=== PATIENT | male | born 1965 | race Caucasian/White ===

== ENCOUNTER → 2016-12-10 | Day surgery (SDC) | payer OTHER ==
[~2016-12-10] MED LIST: FLUMAZENIL 0.5 MG/5 ML MDV IVP ONE; IOPAMIDOL (ISOVUE-300) 100 ML BTL ONE; MIDAZOLAM 2 MG/2 ML VIAL ONE; NALOXONE HCL 0.4 MG/ML INJ ONE; NS 1,000 ML IV SCH; fentaNYL 100 MCG/2 ML INJ ONE
[2016-12-10 14:43] LABS: INR 1.06 (0.83-1.16); PROTIME(PATIENT) 13.7 SEC (12.0-15.0)
[2016-12-10 14:44] LABS: APTT 25.6 SEC (23.0-38.0)
[2016-12-10 21:02] VITALS: BP 116/72; RESP 18; O2SAT 88
== END | disposition home or self-care (01) ==
LOC: FIMAGING 13:32
PROVIDERS: ATTEND Specialist
PROC: 0T763DZ Dilation of Right Ureter with Intraluminal Device, Percutaneous Approach (ICD-10-PCS; principal; 2016-12-10)
PROC: BT1D1ZZ Fluoroscopy of Right Kidney, Ureter and Bladder using Low Osmolar Contrast (ICD-10-PCS; principal; 2016-12-10)
DX: N20.1 Calculus of ureter (principal); N13.30 Unspecified hydronephrosis; G47.33 Obstructive sleep apnea (adult) (pediatric); F41.9 Anxiety disorder, unspecified; Z88.2 Allergy status to sulfonamides
CPT/HCPCS: 50695; 99152; C1729; C1769; C1894; J0696; J1644; J2250; J2310; J3010; Q9967

== ENCOUNTER 2018-08-16 13:34 | Day surgery (SDC) | payer OTHER ==
[2018-08-16] MEDS ORDERED: LR 1,000 ML IV ONE (13:52)
[2018-08-16] MEDS ORDERED: LIDOCAINE 2% JELLY 20 ML (UROJECT) ONE (15:01)
[2018-08-16] MEDS ORDERED: IOPAMIDOL (ISOVUE-M 300) 15 ML VIAL ONE (15:02)
[2018-08-16] MEDS ORDERED: MIDAZOLAM 2 MG/2 ML VIAL IVP ONE (15:47)
[2018-08-16] MEDS ORDERED: HYDROCODONE/APAP 5/325 TAB PO PRN (15:48)
[2018-08-16] MEDS ORDERED: ONDANSETRON 4 MG/2 ML VIAL IVP PRN (15:48)
[2018-08-16] MEDS ORDERED: NALOXONE HCL 0.4 MG/ML INJ IVP PRN (15:48)
[2018-08-16] MEDS ORDERED: PROMETHAZINE HCL 25 MG/ML INJ IVP PRN (15:48)
[2018-08-16] MEDS ORDERED: fentaNYL 100 MCG/2 ML INJ IVP PRN (15:48)
--- NOTE | 2018-08-16 15:48 | PDANEPAE ---
ANE Past Medical History - Cardiovascular History Hx Hypertension: No Hx Arrhythmias: No Hx Chest Pain: No Hx Coronary Artery / Peripheral Vascular Disease: No Hx CHF / Valvular Disease: No Hx Palpitations: No - Pulmonary History Hx COPD: No Hx Asthma/Reactive Airway Disease: No Hx Recent Upper Respiratory Infection: No Hx Oxygen in Use at Home: No Hx Sleep Apnea: No - Neurologic History Hx Cerebrovascular Accident: No Hx Seizures: No Hx Dementia: No - Endocrine History Hx Diabetes: No Obesity: mild - Renal History Hx Renal Disorders: Yes Renal History Comment: kidney stones - Liver History Hx Hepatic Disorders: No - Neurological & Psychiatric Hx Hx Neurological and Psychiatric Disorders: Yes Neurological / Psychiatric History Comment: OCD - Cancer History Hx Cancer: No - Congenital Disorder History Hx Congenital Disorders: Yes Congenital History Comment: medular sponge kidney - GI History GERD: no Hx Gastrointestinal Disorders: Yes Gastrointestinal History Comment: diverticulosis, hemmrhoids - Chronic Pain History Chronic Pain: No - Surgical History Prior Surgeries: attempted uteroscopy for stone removal 12/10/16.nephrostomy tube 5 yr ago, lithrotripsy x4, sri, ANE Review of Systems Review of Systems: - Exercise capacity METS (RN): 5 METS ANE Patient History - Allergies Allergies/Adverse Reactions: cefaclor [From Ceclor] Allergy (Verified 08/16/18 14:06) Vomiting Sulfa (Sulfonamide Antibiotics) Allergy (Verified 12/10/16 11:45) - Home Medications Home medications: home medication list seen and reviewed Home Medications: Herbals/Supplements -Info Only 1 each PO AD 01/18/12 [Last Taken 08/15/18] S-Adenosylmethionine Sul Tosyl [Royer-E] 200 mg PO DAILY 01/18/12 [Last Taken ] fluvoxaMINE MALEATE [Luvox 100 MG (RX)] 300 mg PO DAILY 01/18/12 [Last Taken ] Fish Oil 1,000 mg Capsule 2,000 mg PO DAILY 12/10/16 [Last Taken Unknown] Flomax 0.4 MG (*) 0.4 mg PO DAILY 12/10/16 [Last Taken Unknown] Vitamin C 1,000 mg PO DAILY 12/10/16 [Last Taken 08/11/18] ZINC 1,800 mg PO DAILY 12/10/16 [Last Taken 08/15/18] Zofran Odt 4 mg (*) 4 mg PO PRN PRN 12/10/16 [Last Taken Unknown] Astaxanthin 08/16/18 [Last Taken 08/14/18] - NPO status NPO Status: no food or drink >8 hours NPO Since - Liquids (Date): 08/15/18 NPO Since - Liquids (Time): 23:30 NPO Since - Solids (Date): 08/15/18 NPO Since - Solids (Time): 19:30 - Anes Hx Anes Hx: no prior problems - Smoking Hx Smoking Status: Never smoked ANE Labs/Vital Signs - Vital Signs Blood Pressure: 153/94 Heart Rate: 66 Respiratory Rate: 18 O2 Sat (%): 95 Height: 185.42 cm Weight: 88.451 kg ANE Physical Exam - Airway Neck exam: FROM Mallampati Score: Class 2 Mouth exam: normal dental/mouth exam - Pulmonary Pulmonary: no respiratory distress, no rales or rhonchi, clear to auscultation - Cardiovascular Cardiovascular: regular rate and rhythym, no murmur, rub, or gallop - ASA Status ASA Status: II ANE Anesthesia Plan Anesthesia Plan: GA w LMA
[2018-08-16] MEDS ORDERED: fentaNYL 100 MCG/2 ML INJ ONE (16:04)
[2018-08-16] MEDS ORDERED: PROPOFOL 200 MG/20 ML VIAL ONE (16:04)
[2018-08-16] MEDS ORDERED: ONDANSETRON 4 MG/2 ML VIAL ONE (16:07)
[2018-08-16] MEDS ORDERED: DEXAMETHASONE 4 MG/ML VIAL ONE ×2 (16:07)
[2018-08-16] MEDS ORDERED: LIDOCAINE 2% 2 ML INJ ONE (16:08)
--- NOTE | 2018-08-16 16:19 | PDHPUP ---
History & Physical Update H&P update statement: This history and physical update is based on an assessment of the patient which was completed after admission or registration (within 24 hours), but prior to the surgery/procedure. H&P update: H&P reviewed & patient examined, no change in patient's condition since H&P completed
[2018-08-16] MEDS ORDERED: ceFAZolin 2 GM/DEXTROSE 100 ML IV ONE (16:21)
--- NOTE | 2018-08-16 16:21 | PDGENHP ---
History & Physical Chief Complaint: left ureteral stone History of Present Illness: left ureteral stone and hydronephrosis, plan for ureteroscopy for removal Pertinent Past, Social, Family History: nonsmoker Relevant Physical Exam: HEENT: normal. Lungs: no resp distress. Heart: RRR. Abdomen: soft. LE: no edema or dvt. Neuro: Ox3 Cardiorespiratory Assessment: normal
[2018-08-16] MEDS ORDERED: PHENYLEPHRINE HCL 100 MCG/ML SYR ONE (17:42)
--- NOTE | 2018-08-16 18:08 | POSTOPPROG ---
Post Op Note Date of Operation: 08/16/18 (dictated) Surgeon: Gilberto Grover Anesthesiologist: Taylor Anesthesia: LMA Pre-op Diagnosis: left ureterolithiasis , hydronephrosis Procedure: ureteroscopy laser lithotripsy, stent, fluoroscopy Inf/Abcess present in the surg proc area at time of surgery?: No EBL: Minimal Drains: Other (stent) Specimen(s): stone for analysis
--- NOTE | 2018-08-16 18:11 | POSTANESTH ---
Post Anesthetic Evaluation Cardiovascular Status: Normal, Stable, Similar to Pre-Op Cond Respiratory Status: Normal, Stable, Similar to Pre-op Cond. Level of Consciousness/Mental Status: Can Participate in Eval, Alert and Oriented Pain Control: Adequate, Prn Tx Ordered Nausea/Vomiting Control: Adequate, Prn Tx Ordered Complications Possibly Related to Anesthesia: None Noted
[2018-08-16 19:51] VITALS: BP 153/97
== END 2018-08-16 20:18 | disposition home or self-care (01) ==
LOC: FSGY 13:34
PROVIDERS: ATTEND Specialist
DX: N13.2 Hydronephrosis with renal and ureteral calculous obstruction (principal)
CPT/HCPCS: 52356; 76000; C1758; C1769; C1894; 82365-90; C2625; J0690; J1100; J2250; J2370; J2405; J2704; J3010; Q9967